=== PATIENT | female | born 1995 | race Two or more races ===

== ENCOUNTER 2020-02-15 09:48 | Outpatient (CLI) | payer OTHER | END 2020-02-15 09:55 | disposition home or self-care (01) | LOC: RX STUDY 09:48 | PROVIDERS: ATTEND Obstetrics & Gynecology | DX: N70.11 Chronic salpingitis (principal) ==

== ENCOUNTER 2022-02-04 13:57 | Emergency (ER) | payer OTHER ==
[~2022-02-04] VITALS: Ht 149.9 cm; Wt 39.0 kg
[2022-02-04] MEDS ORDERED: PRENATABS RX T1 EACH PO (14:10)
== END 2022-02-04 20:59 | disposition home or self-care (01) ==
LOC: ER 13:57 → EDBD 14:02 → ER 20:59
DX: O21.0 Mild hyperemesis gravidarum (principal); Z3A.01 Less than 8 weeks gestation of pregnancy

== ENCOUNTER 2022-02-10 15:39 | Emergency (ER) | payer OTHER ==
[~2022-02-10] VITALS: Ht 149.9 cm; Wt 48.1 kg
[~2022-02-10 15:39] MED LIST: PRENATABS RX T1 EACH PO
== END 2022-02-10 22:00 | disposition home or self-care (01) ==
LOC: ER 15:39
DX: O26.891 Other specified pregnancy related conditions, first trimester (principal); R11.10 Vomiting, unspecified; Z3A.01 Less than 8 weeks gestation of pregnancy; Z20.822 Contact with and (suspected) exposure to COVID-19